=== PATIENT | female | born 1995 | race Two or more races ===

== ENCOUNTER → 2024-08-29 | Outpatient (CLI) | payer MEDICAID, SELFPAY ==
--- NOTE | 2024-08-29 11:30 | XR_ITS ---
Examination: Transvaginal ultrasound of the pelvis, complete Technique: Transvaginal sonographic images pelvis performed using vu scale imaging Exam date and time: August 29, 2024 1211 hours INDICATIONS: Heavy vaginal bleeding beginning June 19, 2024 FINDINGS: Uterus 8.0 x 4.0 x 4.9 cm Endometrial stripe 0.5 cm No uterine mass or intrauterine gestation Right ovary 3.0 cm arterial flow small follicles Left ovary 2.6 cm arterial flow small follicles IMPRESSION: Negative examination.
--- NOTE | 2024-08-29 11:30 | XR_ITS ---
Examination: Pelvic ultrasound, transabdominal, complete Technique: Transabdominal ultrasound of the pelvis performed using grayscale imaging Date and time of exam: August 29, 2024 1158 hours INDICATIONS: Abnormal heavy vaginal bleeding beginning June 19, 2024 FINDINGS: Uterus 8.1 x 4.0 x 5.2 cm Endometrial stripe 0.3 cm No uterine mass or intrauterine gestation Right ovary 4.1 cm arterial flow small follicles, the largest 12 mm Left ovary 2.4 cm arterial flow small follicles the largest 9 mm IMPRESSION: Negative examination
== END | disposition home or self-care (01) ==
LOC: CDIM 11:41
PROVIDERS: PCP Family Medicine; Referring Provider Nurse Practitioner Family; Visit Provider Nurse Practitioner Family
DX: N93.9 Abnormal uterine and vaginal bleeding, unspecified (principal)
CPT/HCPCS: 76830; 76856

== ENCOUNTER 2025-03-07 01:10 | Emergency (ER) | payer MEDICAID, SELFPAY ==
[2025-03-07 01:11] VITALS: BMI 29.0
--- NOTE | 2025-03-07 01:15 | EDNOTE_ITS ---
ED Abdominal Pain RME/HPI General Chief Complaint: Abdominal Pain Stated complaint: RUQ PAIN; HX GALLSTONES Time seen by provider: 03/07/25 01:16 Arrival date/time: 03/07/25 01:10 RME / HPI RME / HPI narrative: See MDM for HPI documentation. Related Data Previous Rx's ?Medication ?Instructions ?Recorded meclizine 25 mg tablet 25 mg PO TID PRN vertigo #20 tabs 02/28/24 acetaminophen 300 mg-codeine 30 mg 2 tab PO Q8H PRN pa in #20 tabs 03/07/25 tablet amoxicillin 875 mg-potassium 1 tab PO BID 5 days #10 t abs 03/07/25 clavulanate 125 mg tablet metoclopramide HCl 10 mg tablet 10 mg PO Q8H PRN nause a and 03/07/25 (Reglan) vomiting #20 tabs ondansetron 4 mg disintegrating 4 mg PO TID PRN nausea and 03/07/25 tablet vomiting 30 days #10 tabs Allergies Allergy/AdvReac Type Severity Reaction Status Date / Time No Known Allergies Allergy Verified 03/07/25 01:14 Review of Systems Review of Systems Systems Reviewed: All systems reviewed, normal except as documented Past Medical History Past Medical History NEUROLOGIC: Negative Neurological Disorders CARDIAC: Negative Cardiac Disorders or Congestive Heart Failure RESPIRATORY: Negative Chronic Obstructive Pulmonary Disease (COPD) GASTROINTESTINAL: Positive Gastrointestinal Disorders and Gall Bladder Disease; Negative Hepatitis or Colorectal Cancer GENITOURINARY: Negative Genitourinary Disorders, Renal Disease or Prostate Cancer REPRODUCTIVE: Positive Previous Pregnancies; Negative Breast Cancer, Endometriosis, Pelvic Inflammatory Disease, Testicular Cancer or Uterine Prolapse MUSCULOSKELETAL: Negative Musculoskeletal Disorders or Bone Cancer ENDOCRINE: Negative Endocrine Disorders, Diabetes Mellitus Type 1 or Diabetes Mellitus Type 2 HEMATOLOGIC: Negative Blood Disorders OTHER HISTORY: Negative Hospitalization, Autoimmune Disease, Down Syndrome, Developmental Delay, Shingles, Falls, Blood Transfusions, Blood Transfusion Reaction, Anesthesia Reactions, Organ Transplant, Chemotherapy, Radiation Therapy, Hyperbaric Therapy, MRSA, VRSA, Vancomycin-Resistant Enterococci, Human Immunodeficiency Virus (HIV), Chicken Pox, Measles, Mumps, Rubella ([place] Measles), Pertussis, Clostridium Difficile, Cancer, Breast Cancer, Cervical Cancer, Colorectal Cancer, Lung Cancer, Ovarian Cancer, Prostate Cancer or Testicular Cancer Family History FAMILY HISTORY: Positive Family Gastrointestinal Problems; Negative Family Psychiatric Problems, Family Respiratory Disorders, Family Cardiac Disorders, Family Cancer, Family Surgery or Family Anesthesia Reaction Surgical History SURGICAL: Negative Section or Organ Transplant Social History SMOKING STATUS: Never smoker SUBSTANCE USE: does not use ED Exam Narrative Physical exam: See MDM for physical exam documentation. Course Quality Measures none Orders Category Date Time Status Saline [Insert IV] NOW Care 03/07/25 01:16 Completed US gall bladder Stat Exams 03/07/25 01:18 Completed Amylase Stat Lab 03/07/25 01:38 Completed Bilirubin,Direct Stat Lab 03/07/25 01:38 Completed CBC Stat Lab 03/07/25 01:38 Completed CMP [Comprehensive Metabolic Panel] Stat Lab 03/07/25 01:38 Completed HCG,Qualitative Serum Stat Lab 03/07/25 01:38 Completed Lipase Stat Lab 03/07/25 01:38 Completed Magnesium Stat Lab 03/07/25 01:38 Completed Famotidine Inj [Pepcid Inj] Med 03/07/25 01:17 Discontinued 20 mg IVP X1 ONE HYDROmorphone INJ [Dilaudid Inj] Med 03/07/25 01:17 Discontinued 1 mg IVP X1 ONE HYDROmorphone INJ [Dilaudid Inj] Med 03/07/25 03:52 Discontinued 1 mg IVP X1 ONE Metoclopramide Inj [Reglan Inj] Med 03/07/25 03:10 Discontinued 10 mg IVP X1 ONE Ondansetron Inj [Zofran Inj] Med 03/07/25 01:17 Discontinued 4 mg IVP X1 ONE Ondansetron Inj [Zofran Inj] Med 03/07/25 03:10 Discontinued 4 mg IVP X1 ONE Pantoprazole Inj [Protonix Inj] Med 03/07/25 01:17 Discontinued 40 mg IVP X1 ONE Sodium Chloride 0.9% 1000 ml [Ns] 1,000 ml Med 03/07/25 01:17 Discontinued IV 999 mls/hr Vital Signs Vital signs: Vital Signs Pulse Rate 80 03/07/25 01:21 Blood Pressure 106/72 03/07/25 01:21 Pulse Oximetry (%) 100 03/07/25 01:21 Abdominal Pain [facility] MDM Narrative [facility] Narrative:: This section includes all my notes and documentations, including HPI, PE, and ED course. Brendon Mi MD HPI: 29yo female here with about 12-hour history of severe epigastric pain. With nausea and vomiting. No fever. No other complaints. ROS: All negative except as documented in HPI. Physical Exam: General: Alert and oriented. In severe pain. Eyes: Conjunctivae and lids clear. ENT: No nasal congestion. Neck: Supple. Heart: RRR. Lungs: No respiratory distress. Good air movement. No rhonchi, wheezing, rales. Abdomen: Soft, severe epigastric pain. Normal bowel sounds. No distension. No rebound or guarding. Back: No CVA tenderness. Skin: Warm and dry. Neuro: Alert and oriented X 3. I reviewed all diagnostic test results. My review of the gallbladder US report is cholelithiasis. Blood tests are unremarkable, including WBC 8.6. At this point, diagnoses include biliary colic. Treatment here included Protonix, Zofran, IV fluid, Dilaudid, Pepcid, Reglan. Significant improvement noted. Offered more care here, including MRCP and evaluation by our surgeon. Patient declined. Patient requested going home. Will try outpatient elective surgery. We couldn't change her mind. Based on my best medical judgment, made decision no further evaluation or treatment indicated at this time. Patient understands and agrees to the discharge instructions customized and printed, see below. Discharge Instructions from Dr. Mi: 1. After evaluation, your symptoms are due to gallstone(s). You need gallbladder to help digest fatty foods. See attached handout. 2. So to prevent future attacks, avoid all fatty and oily and greasy and buttery and dairy foods. This usually means take out and fast food restaurants. 3. Zofran for nausea/vomiting. Tylenol with codeine for severe pain. Clear liquid diet for 24 hours then advance diet slowly as tolerated. 4. See a private doctor on 03/08/2025 for recheck and further care. Ask to review all test results and official radiology reports, to make sure you receive all necessary follow-ups and monitoring. Ask for help seeing a general surgeon to discuss elective surgery. 5. Seek immediate medical care with intolerable pain, fever, or with any concerns. Brendon Mi MD Patient data External records reviewed:: [facility] previous records (Per chart review, patient was seen here on 02/28/24 for dysuria.) Clinical information provided by:: patient Social determinants that could affect healthcare access:: none Patient has the following chronic illnesses:: none How is presenting disease/condition affected by chronic disease/condition?: no chronic disease Evaluation data The following diagnostics were reviewed and interpreted by me:: lab results and radiology exam(s) Lab and/or radiology exams considered but not ordered:: none Interpretation Summary: I reviewed all diagnostic test results. My review of the gallbladder US report is cholelithiasis. Blood tests are unremarkable, including WBC 8.6. Medications / Prescriptions Medications or Prescriptions considered but not ordered:: none Medication administrations:: Medication Administration History Discontinued Medications Famotidine (Famotidine Inj 10 Mg/Ml Vial 2 Ml) 20 mg IVP X1 ONE Stop: 03/07/25 01:18 Last Admin: 03/07/25 01:42 Dose: 20 mg Documented By: NATHAN Hydromorphone HCl (Hydromorphone Inj 2 Mg/Ml Vial) 1 mg IVP X1 ONE Stop: 03/07/25 01:18 Last Admin: 03/07/25 01:39 Dose: 1 mg Documented By: NATHAN Hydromorphone HCl (Hydromorphone Inj 2 Mg/Ml Vial) 1 mg IVP X1 ONE Stop: 03/07/25 03:53 Last Admin: 03/07/25 04:23 Dose: 1 mg Documented By: NATHAN Sodium Chloride (Ns) 1,000 mls @ 999 mls/hr IV .Q1H1M ONE Stop: 03/07/25 02:17 Last Infusion: 03/07/25 03:00 Dose: Infused Documented By: Admin: 03/07/25 01:46 Dose: 999 mls/hr Documented By: NATHAN Metoclopramide HCl (Metoclopramide Inj 5 Mg/Ml Vial 2 Ml) 10 mg IVP X1 ONE; Protocol Stop: 03/07/25 03:11 Last Admin: 03/07/25 03:26 Dose: 10 mg Documented By: NATHAN Ondansetron HCl (Ondansetron Inj 2 Mg/Ml Inj 2 Ml) 4 mg IVP X1 ONE; Protocol Stop: 03/07/25 01:18 Last Admin: 03/07/25 01:41 Dose: 4 mg Documented By: NATHAN Ondansetron HCl (Ondansetron Inj 2 Mg/Ml Inj 2 Ml) 4 mg IVP X1 ONE; Protocol Stop: 03/07/25 03:11 Last Admin: 03/07/25 03:26 Dose: 4 mg Documented By: NATHAN Pantoprazole Sodium (Pantoprazole Inj 40 Mg Vial) 40 mg IVP X1 ONE Stop: 03/07/25 01:18 Last Admin: 03/07/25 01:42 Dose: 40 mg Documented By: NATHAN Protonix, Zofran, IV fluid, Dilaudid, Pepcid, Reglan Consultations Consultation(s) initiated? (list below): No Diagnosis Differential diagnosis abdominal pain: acute appendicitis, calculus of kidney, constipation, diverticulitis, endometriosis, gastroenteritis, pancreatitis, small bowel obstruction and other (Biliary colic, GERD, PUD, gastritis) Most likely diagnosis given after review of the tests above:: Biliary colic Admission Indicated Admission indicated?: not indicated Explain why admission is indicated or not indicated:: Offered more care here, including MRCP and evaluation by our surgeon. Patient declined. Patient requested going home. Will try outpatient elective surgery. We couldn't change her mind. Admission Request Was there a request for admission?: No Disposition Plan Disposition Plan: Discharge Discharge Attestation Discharge Attestation: The patient and all family members were given an opportunity to ask questions and understood the discharge instructions. Discharge instructions specifically effects, indications for sooner follow up or return to the emergency department, and the expected course of current diagnosis. Patient condition: Stable Discharge Plan Plan Patient Disposition: HOME (Self Care) Prescriptions/Referrals Prescriptions/Med Rec: New acetaminophen-codeine 300-30 mg tablet 2 tab PO Q8H MDD 6 PRN (Reason: pain) Qty: 20 0RF ondansetron 4 mg tablet,disintegrating 4 mg PO TID PRN (Reason: nausea and vomiting) 30 Days Qty: 10 0RF amoxicillin-pot clavulanate 875-125 mg tablet 1 tab PO BID 5 Days Qty: 10 0RF metoclopramide HCl [Reglan] 10 mg tablet 10 mg PO Q8H PRN (Reason: nausea and vomiting) Qty: 20 0RF No Action meclizine 25 mg tablet 25 mg PO TID PRN (Reason: vertigo) Qty: 20 0RF Problem List Clinical Impression: Gallstones Patient/Caregiver Discharge Instructions Discharge Activity: activity as tolerated Education Materials: ED Gallstones with Biliary Colic Additional Instructions: Discharge Instructions from Dr. Mi: 1. After evaluation, your symptoms are due to gallstone(s).? You need gallbladder to help digest fatty foods. See attached handout. 2. So to prevent future attacks, avoid all fatty and oily and greasy and buttery and dairy foods.? This usually means take out and fast food restaurants. 3. Zofran for nausea/vomiting.? Tylenol with codeine for severe pain.? Clear liquid diet for 24 hours then advance diet slowly as tolerated. 4. See a private doctor on 03/08/2025 for recheck and further care. Ask to review all test results and official radiology reports, to make sure you receive all necessary follow-ups and monitoring. Ask for help seeing a general surgeon to discuss elective surgery. 5. Seek immediate medical care with intolerable pain, fever, or with any concerns. Instrucciones de lucia del Dr. Mi: 1. Despu?s de la evaluaci?n, jose s?ntomas se deben a c?lculos biliares. Necesita ves?cula biliar para digerir los alimentos grasos. Candelario el folleto adjunto. 2. Para prevenir futuros ataques, evite todos los alimentos grasosos, aceitosos, grasosos, con mantequilla y l?cteos. [place] generalmente implica comida para llevar y restaurantes de comida r?pida. 3. Zofran para n?useas y v?mitos. Tylenol con code?na para el dolor intenso. Dieta l?quida shruthi 24 horas y luego aumente la dieta gradualmente seg?n la tolerancia. 4. Consulte con un m?dico privado el 08/03/2025 para adolfo revisi?n y atenci?n adicional. [place] la revisi?n de todos los resultados de las pruebas y los informes radiol?gicos oficiales para asegurarse de recibir todos los seguimientos y la monitorizaci?n necesarios. [place] ayuda con un cirujano general para hablar sobre adolfo cirug?a electiva. 5. Busque atenci?n m?dica inmediata si presenta dolor insoportable, fiebre o cualquier inquietud. Print Language: Norwegian Stand Alone Forms: Emilia Award Info., Work/School Release, Patient Portal Info Letter
--- NOTE | 2025-03-07 01:18 | XR_ITS ---
Examination: Abdomen sonogram, Limited Date and time of exam: March 07, 2025 0151 hours INDICATIONS: Right upper abdominal pain and tenderness today Technique: Real-time vu scale transabdominal sonographic images of the upper abdomen obtained. Findings: Multiple gallstones Gallbladder wall 0.57 cm Common bile duct enlarged 0.8 cm Pancreatic head 1.9 cm 114.3 cm no focal liver lesions Normal hepatopedal portal venous flow Patent IVC IMPRESSION: Consider MRCP follow-up to confirm calculus cholecystitis and assess the enlarged common bile duct
[2025-03-07 01:21] VITALS: BP 106/72; PULSE 80; O2SAT 100
[2025-03-07 01:22] VITALS: BP 111/67; PULSE 75; RESP 20; TEMP 36.6; O2SAT 99
[2025-03-07] MEDS: HYDROmorphone INJ 2 MG/ML VIAL 1 MG IVP ×2 (01:39→04:23)
[2025-03-07] MEDS: ONDANSETRON INJ 2 MG/ML INJ 2 ML 4 MG IVP ×2 (01:41→03:26)
[2025-03-07] MEDS: FAMOTIDINE INJ 10 MG/ML VIAL 2 ML 20 MG IVP (01:42)
[2025-03-07] MEDS: SODIUM CHLORIDE 0.9% 1000 ML 1,000 ML 999 ML IV (01:46)
[2025-03-07 01:48] LABS: Basophils # (Auto) 0.0 Thou/mm3 (0.0-0.2); Basophils % (Auto) 0 % (0-2.5); Eosinophils # (Auto) 0.2 Thou/mm3 (0.0-0.5); Eosinophils % (Auto) 2 % (0-10); Hematocrit 38.4 % (36.0-46.0); Hemoglobin 12.9 g/dL (12.0-16.0); Immature Granulocytes Auto 0.01 Thou/mm3 (0.00-0.00); Lymphocytes # (Auto) 2.9 Thou/mm3 (1.0-4.8); Lymphocytes % (Auto) 34 % (10-50); Mean Corpuscular HGB Conc 33.6 g/dl (31.0-37.0); Mean Corpuscular Hemoglobin 30.4 pg (25.0-35.0); Mean Corpuscular Volume 91 fL (80-100); Monocytes # (Auto) 0.8 Thou/mm3 (0.0-0.8); Monocytes % (Auto) 9 % (0-12); Neutrophils # (Auto) 4.7 Thou/mm3 (1.8-7.7); Neutrophils % (Auto) 55 % (37-80); Nucleated Red Blood Cell # 0.00 Thou/mm3 (0.00-0.00); Nucleated Red Blood Cell % 0 /100 WBC (0); Platelet Count 205 Thou/mm3 (140-440); RDW Standard Deviation 44.0 fL (36.4-46.3); Red Blood Count 4.24 Miln/mm3 (4.00-5.20); White Blood Count 8.6 Thou/mm3 (3.6-11.0)
[2025-03-07 02:06] LABS: Alanine Aminotransferase 45 U/L (10-49); Albumin, Serum 4.0 gm/dL (3.5-5.0); Albumin/Globulin Ratio 1.5 (1.2-2.2); Alkaline Phosphatase 58 U/L (46-116); Amylase 54 U/L (30-118); Anion Gap 11 (7-16); Aspartate Amino Transferase 54 U/L (0-34); BUN/Creatinine Ratio 16 Ratio (12-20); Bilirubin,Direct 0.1 mg/dL (0.0-0.3); Bilirubin,Total 0.3 mg/dL (0.3-1.2); Blood Urea Nitrogen 11 mg/dL (9-23); Calcium 9.3 mg/dL (8.3-10.6); Calcium (Corrected) 9.3 mg/dL (8.5-10.1); Carbon Dioxide 23.5 mMol/L (20.0-31.0); Chloride 106 mMol/L (98-107); Creatinine (Component) 0.7 mg/dL (0.6-1.3); Estimated Creatinine Clearance 109.3 mL/min (>60); Globulin 2.6 gm/dL (2.3-3.5); Glucose 110 mg/dL (74-106); Lipase 33 U/L (12-53); Magnesium 1.9 mg/dL (1.6-2.6); Osmolality,Calculated 279 (275-295); Potassium 3.7 mMol/L (3.4-5.1); Sodium 140 mMol/L (136-145); Total Protein 6.6 gm/dL (5.7-8.2); eGFR > 60 See Note
[2025-03-07 02:34] VITALS: BP 106/72; PULSE 74; RESP 18; TEMP 36.6; O2SAT 96
[2025-03-07 02:50] LABS: HCG,Qualitative Serum Negative
[2025-03-07 03:10] VITALS: BP 122/88; PULSE 82; RESP 18; TEMP 36.6; O2SAT 98
--- NOTE | 2025-03-07 03:14 | PRELIM_ITS ---
Right upper quadrant abdominal ultrasound with Doppler and wave Doppler spectral analysis. March 07, 2025 0151 hours Clinical history: Right upper quadrant tenderness. Technique: Grayscale and color flow images of the right upper quadrant are provided. Hepatic and portal veins were also imaged with color flow images. Comparison: No prior study is available for comparison. Findings: The liver is normal in echogenicity. No intrahepatic biliary ductal dilatation. Gallbladder wall thickening. Gallstones. No pericholecystic fluid is demonstrated. The common bile duct is dilated in caliber at 8.0 mm. The pancreas is unremarkable to the extent visualized. The imaged portions of the right kidney are within normal limits. The hepatic veins are patent with normal wave Doppler spectral analysis. The inferior vena cava is patent with normal wave Doppler spectral analysis. The portal vein is patent with hepatopetal flow with normal wave Doppler spectral analysis. Rodriguez sign is not available at the time of this report. Impression: Dilated CBD suspicious for choledocholithiasis. Gallstones and gallbladder wall thickening, highly suspicious for acute calculus cholecystitis. Report Electronically Signed By: Bartolo Rocha 03/07/2025 3:14:08 AM [EST]
--- NOTE | 2025-03-07 03:15 | PC.NURSE ---
ashlyn giving pt discharg instructions, pt started vomiting. md patel znd fdfmed ordered.
[2025-03-07] MEDS: METOCLOPRAMIDE INJ 5 MG/ML VIAL 2 ML 10 MG IVP (03:26)
[2025-03-07 04:12] VITALS: BP 106/72; PULSE 83; RESP 19; TEMP 36.6; O2SAT 98
== END 2025-03-07 04:48 | disposition home or self-care (01) ==
LOC: SERX 03:16
PROVIDERS: Emergency Provider Emergency Medicine; PCP Specialist
DX: K80.70 Calculus of gallbladder and bile duct without cholecystitis without obstruction (principal)
CPT/HCPCS: 36415; 76705; 80053; 81001; 82150; 82248; 83690; 83735; 84703; 85025; 96361; 96374; 96375; 96376; 99283; J1171; J2405; J2470; J2765; J3490; J7030

== ENCOUNTER 2025-05-23 22:10 | Emergency (ER) | payer MEDICAID, SELFPAY ==
[2025-05-23 22:35] VITALS: BP 124/80; PULSE 73; RESP 18; TEMP 36.7; O2SAT 99
--- NOTE | 2025-05-23 22:45 | EDNOTE_ITS ---
ED Abdominal Pain RME/HPI General Chief Complaint: Abdominal Pain Stated complaint: ABD PAIN Time seen by provider: 05/23/25 22:29 Arrival date/time: 05/23/25 22:10 Source: patient, RN notes reviewed and old records reviewed Mode of arrival: ambulatory Limitations: no limitations RME / HPI RME / HPI narrative: 29yof presents to ED for epigastric pain that initiated tonight. Patient reports nausea and vomiting since onset. No fever, shortness of breath, chest pain, diarrhea or urinary symptoms reported. No medications or treatments [employer]. Hx gallstones. Related Data Previous Rx's ?Medication ?Instructions ?Recorded meclizine 25 mg tablet 25 mg PO TID PRN vertigo #20 tabs 02/28/24 acetaminophen 300 mg-codeine 30 mg 2 tab PO Q8H PRN pa in #20 tabs 03/07/25 tablet metoclopramide HCl 10 mg tablet 10 mg PO Q8H PRN nause a and 03/07/25 (Reglan) vomiting #20 tabs acetaminophen 500 mg tablet 1,000 mg (2 x 500 mg) PO Q 6H PRN 05/23/25 (Tylenol Extra Strength) pain #30 tabs famotidine 40 mg tablet (Pepcid) 40 mg PO QDAY #30 tab s 05/23/25 ondansetron 4 mg disintegrating 4 mg PO Q6H PRN nausea and 05/23/25 tablet vomiting #10 tabs sucralfate 1 gram tablet (Carafate) See Rx Instruction s .Route 05/23/25 .COMPLEX #30 tabs Allergies Allergy/AdvReac Type Severity Reaction Status Date / Time No Known Allergies Allergy Verified 05/23/25 22:11 Review of Systems Review of Systems Systems Reviewed: All systems reviewed, normal except as documented Constitutional Constitutional: Denies chills and Denies fever(s) Cardiovascular Cardiovascular: Denies chest pain and Denies dyspnea Respiratory Respiratory: Denies dyspnea Gastrointestinal Gastrointestinal: Reports abdominal pain, Denies loose stools, Reports nausea and Reports vomiting Genitourinary Genitourinary: Denies dysuria and Denies flank pain Past Medical History Past Medical History GASTROINTESTINAL: Positive Gall Bladder Disease and Obesity Social History SMOKING STATUS: Never smoker SUBSTANCE USE: does not use ALCOHOL: Never ED Exam General Limitations: Present no limitations General appearance: Present alert and in no apparent distress Head Head exam: Present atraumatic and normocephalic Eye Eye exam: Present normal appearance, PERRL and EOMI ENT ENT exam: Present normal exam and mucous membranes moist Neck Neck exam: Present normal inspection and full ROM Chest Chest inspection: Present normal inspection and symmetric chest wall rise Respiratory Respiratory exam: Present normal lung sounds bilaterally; Absent respiratory distress Cardiovascular Cardiovascular exam: Present regular rate and normal rhythm Abdominal Exam Abdominal exam: Present soft and tenderness (Epigastric, mild); Absent distention, guarding or rebound Extremities Exam Extremities exam: Present normal inspection and full ROM Neurological Exam Neurological exam: Present alert and oriented X3 Psychiatric Psychiatric exam: Present normal affect and normal mood Skin Skin exam: Present warm, dry, intact and normal color Course Quality Measures none Orders Category Date Time Status CBC Stat Lab 05/23/25 22:54 Completed CMP [Comprehensive Metabolic Panel] Stat Lab 05/23/25 22:54 Completed HCG,Qualitative Serum Stat Lab 05/23/25 22:54 Completed Lipase Stat Lab 05/23/25 22:54 Completed Famotidine [Pepcid] Med 05/23/25 22:46 Discontinued 40 mg PO X1 ONE HYDROcodone*/APAP 7.5/325 [[place] 7.5/325] Med 05/23/25 22:46 Discontinued 1 tab PO X1 ONE Ketorolac Inj [Toradol Inj] Med 05/23/25 22:46 Discontinued 30 mg IM X1 ONE Lidocaine 2% Viscous [Xylocaine 2% Viscous] Med 05/23/25 22:46 Discontinued 15 ml PO X1 ONE Ondansetron Odt [Zofran Odt] Med 05/23/25 22:46 Discontinued 4 mg PO X1 ONE mg Hyd/Al Hyd/Eliezer Susp [Maalox Susp] Med 05/23/25 22:46 Discontinued 30 ml PO X1 ONE Vital Signs Vital signs: Vital Signs Temperature 98.0 F 05/23/25 22:35 Pulse Rate 73 05/23/25 22:35 Respiratory Rate 18 05/23/25 22:35 Blood Pressure 124/80 05/23/25 22:35 Pulse Oximetry (%) 99 05/23/25 22:35 Oxygen Delivery Method Room Air 05/23/25 22:35 Abdominal Pain MDM MDM Narrative MDM Narrative:: 29yof presents to ED for epigastric pain that initiated tonight. Patient reports nausea and vomiting since onset. No fever, shortness of breath, chest pain, diarrhea or urinary symptoms reported. No medications or treatments [employer]. Hx gallstones. Patient reassessed. States she is feeling better, symptoms improved, tolerating po. Labs reassuring. Encourage adequate fluids, symptomatic treatment prn. Stable for discharge, RTED precautions given. Patient data External records reviewed:: [facility] previous records (03/07/2025 ED visit for gallstones) Clinical information provided by:: patient Social determinants that could affect healthcare access:: other (specify) (Poor access to healthcare) Patient has the following chronic illnesses:: Gallstones How is presenting disease/condition affected by chronic disease/condition?: caused by Evaluation data The following diagnostics were reviewed and interpreted by me:: lab results Lab and/or radiology exams considered but not ordered:: Gallbladder ultrasound: Patient has known history of gallstones. Labs and exam reassuring Interpretation Summary: No leukocytosis No anemia LFTs and lipase wnl Negative Medications / Prescriptions Medications or Prescriptions considered but not ordered:: No antibiotics recommended at this time Medication administrations:: Medication Administration History Discontinued Medications Hydrocodone Bitart/Acetaminophen (Hydrocodone/Apap 7.5/325 Tablet) 1 tab PO X1 ONE Stop: 05/23/25 22:47 Last Admin: 05/23/25 23:22 Dose: 1 tab Documented By: CVL Al Hydrox/Mg Hydrox/Simethicone (Mg Hyd/Al Hyd/Eliezer (Maalox Reg) Susp 30 Ml Udc) 30 ml PO X1 ONE Stop: 05/23/25 22:47 Last Admin: 05/23/25 23:21 Dose: 30 ml Documented By: CVL Famotidine (Famotidine 20 Mg Tablet) 40 mg PO X1 ONE Stop: 05/23/25 22:47 Last Admin: 05/23/25 23:22 Dose: 40 mg Documented By: CVL Ketorolac Tromethamine (Ketorolac Inj 30 Mg/Ml Vial) 30 mg IM X1 ONE Stop: 05/23/25 22:47 Last Admin: 05/23/25 23:20 Dose: 30 mg Documented By: CVL Lidocaine HCl (Lidocaine Viscous 2% 15 Ml Udc) 15 ml PO X1 ONE Stop: 05/23/25 22:47 Last Admin: 05/23/25 23:21 Dose: 15 ml Documented By: CVL Ondansetron HCl (Ondansetron Odt 4 Mg Tabrap) 4 mg PO X1 ONE; Protocol Stop: 05/23/25 22:47 Last Admin: 05/23/25 23:19 Dose: 4 mg Documented By: ZAINL Above medications administered in ED Consultations Consultation(s) initiated? (list below): No Diagnosis Differential diagnosis abdominal pain: other (Cholelithiasis, cholecystitis, gastritis, PUD, constipation, pancreatitis, gastroenteritis) Most likely diagnosis given after review of the tests above:: Epigastric pain, gastritis, biliary colic Admission Indicated Admission indicated?: not indicated Admission Request Was there a request for admission?: No Disposition Plan Disposition Plan: Discharge Discharge Attestation Discharge Attestation: The patient and all family members were given an opportunity to ask questions and understood the discharge instructions. Discharge instructions specifically effects, indications for sooner follow up or return to the emergency department, and the expected course of current diagnosis. Patient condition: Stable Discharge Plan Plan Patient Disposition: HOME (Self Care) Patient condition on transfer: Stable Prescriptions/Referrals Prescriptions/Med Rec: New ondansetron 4 mg tablet,disintegrating 4 mg PO Q6H PRN (Reason: nausea and vomiting) Qty: 10 0RF sucralfate [Carafate] 1 gram tablet See Rx Instructions .ROUTE .COMPLEX Qty: 30 0RF Rx Instructions: 1 g orally before meals and at bedtime. famotidine [Pepcid] 40 mg tablet 40 mg PO QDAY Qty: 30 0RF acetaminophen [Tylenol Extra Strength] 500 mg tablet 1,000 mg PO Q6H PRN (Reason: pain) Qty: 30 0RF No Action meclizine 25 mg tablet 25 mg PO TID PRN (Reason: vertigo) Qty: 20 0RF acetaminophen-codeine 300-30 mg tablet 2 tab PO Q8H MDD 6 PRN (Reason: pain) Qty: 20 0RF metoclopramide HCl [Reglan] 10 mg tablet 10 mg PO Q8H PRN (Reason: nausea and vomiting) Qty: 20 0RF Referrals: Danielle Benítez PA-C [Primary Care Provider] - In 1 week Evan Quezada MD [Physician, Gastroenterology] Referral Note: Call to schedule an appointment as needed. Problem List Clinical Impression: Acute epigastric pain Patient/Caregiver Discharge Instructions Education Materials: Treating Gastritis Additional Instructions: Avoid spicy foods and hot cheetos which will exacerbate your abdominal pain. Follow-up with GI if symptoms persist or worsen. Print Language: Dutch Stand Alone Forms: Emilia Award Info., Patient Portal Info Letter PA/[employer] Supervising Physician PA/[employer] Supervising Physician: Luis F
[2025-05-23 23:07] LABS: Basophils # (Auto) 0.0 Thou/mm3 (0.0-0.2); Basophils % (Auto) 1 % (0-2.5); Eosinophils # (Auto) 0.2 Thou/mm3 (0.0-0.5); Eosinophils % (Auto) 3 % (0-10); Hematocrit 37.2 % (36.0-46.0); Hemoglobin 12.3 g/dL (12.0-16.0); Immature Granulocytes Auto 0.02 Thou/mm3 (0.00-0.00); Lymphocytes # (Auto) 2.7 Thou/mm3 (1.0-4.8); Lymphocytes % (Auto) 42 % (10-50); Mean Corpuscular HGB Conc 33.1 g/dl (31.0-37.0); Mean Corpuscular Hemoglobin 30.7 pg (25.0-35.0); Mean Corpuscular Volume 93 fL (80-100); Monocytes # (Auto) 0.6 Thou/mm3 (0.0-0.8); Monocytes % (Auto) 10 % (0-12); Neutrophils # (Auto) 2.8 Thou/mm3 (1.8-7.7); Neutrophils % (Auto) 44 % (37-80); Nucleated Red Blood Cell # 0.00 Thou/mm3 (0.00-0.00); Nucleated Red Blood Cell % 0 /100 WBC (0); Platelet Count 174 Thou/mm3 (140-440); RDW Standard Deviation 44.0 fL (36.4-46.3); Red Blood Count 4.01 Miln/mm3 (4.00-5.20); White Blood Count 6.4 Thou/mm3 (3.6-11.0)
[2025-05-23] MEDS: ONDANSETRON ODT 4 MG TABRAP PO (23:19)
[2025-05-23] MEDS: KETOROLAC INJ 30 MG/ML VIAL IM (23:20)
[2025-05-23] MEDS: MG HYD/AL HYD/SIME (Maalox Reg) SUSP 30 ML UDC PO (23:21)
[2025-05-23] MEDS: LIDOCAINE VISCOUS 2% 15 ML UDC PO (23:21)
[2025-05-23 23:22] LABS: Alanine Aminotransferase 12 U/L (10-49); Albumin, Serum 4.4 gm/dL (3.5-5.0); Albumin/Globulin Ratio 2.0 (1.2-2.2); Alkaline Phosphatase 54 U/L (46-116); Anion Gap 7 (7-16); Aspartate Amino Transferase 15 U/L (0-34); BUN/Creatinine Ratio 10 Ratio (12-20); Bilirubin,Total 0.2 mg/dL (0.3-1.2); Blood Urea Nitrogen 8 mg/dL (9-23); Calcium 8.9 mg/dL (8.3-10.6); Calcium (Corrected) 8.9 mg/dL (8.5-10.1); Carbon Dioxide 26.7 mMol/L (20.0-31.0); Chloride 107 mMol/L (98-107); Creatinine (Component) 0.8 mg/dL (0.6-1.3); Globulin 2.2 gm/dL (2.3-3.5); Glucose 87 mg/dL (74-106); Lipase 35 U/L (12-53); Osmolality,Calculated 278 (275-295); Potassium 4.0 mMol/L (3.4-5.1); Sodium 141 mMol/L (136-145); Total Protein 6.6 gm/dL (5.7-8.2); eGFR > 60 See Note
[2025-05-23] MEDS: HYDROcodone/APAP 7.5/325 TABLET 1 TAB PO (23:22)
[2025-05-23] MEDS: FAMOTIDINE 20 MG TABLET 40 MG PO (23:22)
[2025-05-23 23:52] LABS: HCG,Qualitative Serum Negative
[2025-05-24 00:14] VITALS: RESP 16
== END 2025-05-24 00:15 | disposition home or self-care (01) ==
PROVIDERS: Physician Assistant; Emergency Provider Emergency Medicine; PCP Specialist
DX: O26.899 Other specified pregnancy related conditions, unspecified trimester (principal); K29.70 Gastritis, unspecified, without bleeding
CPT/HCPCS: 36415; 80053; 83690; 84703; 85025; 96372; 99283; J1885; J3490; Q0162; A9270